=== PATIENT | male | born 1955 | race Caucasian/White ===

== ENCOUNTER → 2020-06-28 03:24 | Outpatient (CLI) | payer MEDICARE, SELFPAY ==
[2020-06-28 18:11] LABS: SARS-CoV-2 RNA PCR Negative
== END ==
PROVIDERS: PCP Internal Medicine; Visit Provider Internal Medicine Gastroenterology
DX: Z01.812 Encounter for preprocedural laboratory examination (principal); Z20.822 Contact with and (suspected) exposure to COVID-19
CPT/HCPCS: C9803; U0003; U0005

== ENCOUNTER 2020-07-01 01:40 | Day surgery (SDC) | payer MEDICARE, OTHER, SELFPAY ==
[2020-06-25 08:29] VITALS: BMI 34.7
[2020-07-01 07:10] VITALS: BP 146/87; PULSE 86; RESP 20; TEMP 36.3; O2SAT 100; BMI 33.7
[2020-07-01] MEDS: LACTATED RINGERS 1,000 ML 150 ML IV CONT (07:26)
--- NOTE | 2020-07-01 07:41 | P.PNAN_ITS ---
Anes - Initial Pre Proc Eval Procedure: Operation Date: 07/01/20 08:30 Proposed Procedures p Screening Colonoscopy - Kike Izquierdo MD Date/Time: 07/01/20 07:41 Surgeon: Kike Izquierdo MD Pre Op Diagnosis: Neoplasm Screening Patient Data Age: 64 Gender: M Height: 1.78 m Weight: 106.6 kg Last Vital Signs Temp 36.3 C L 07/01/20 07:10 Pulse 86 07/01/20 07:10 Resp 20 07/01/20 07:10 BP 146/87 H 07/01/20 07:10 Pulse Ox 100 07/01/20 07:10 Allergies Allergy/AdvReac Type Severity Reaction Status Date / Time Penicillins Allergy Mild Rash Verified 07/01/20 07:07 Home Medications Medication Instructions Recorded Confirmed Type sodium,potassium,mag sulfates See Rx Instructions .ROUTE 06/24/20 Rx [Suprep Bowel Prep Kit] .COMPLEX #1 ml atorvastatin 40 mg PO DAILY 06/25/20 06/25/20 History quinapril-hydrochlorothiazide 1 tablet PO BID 06/25/20 06/25/20 History verapamil 180 mg PO BID 06/25/20 06/25/20 History Patient hx anesthesia problems: none Family hx anesthesia problems: none [facility] Past Medical History Medical History (Updated 07/01/20 @ 07:42 by Vijay Romero MD) HTN (hypertension) Hyperlipidemia Obesity Social History Social History Smoking status: Never smoker Alcohol intake: current Drinks per week: 5 Substance use: never Substance use type: does not use Living arrangements: with family Spiritual care concerns: No Anes - Eval Final PreProcedure Day of Procedure 07/01/20 07:41 Patient weight: obese Heart: regular rate and rhythm Lungs: clear to auscultation and normal air movement Airway: Mallampati scale class II Neurological: alert and oriented Last oral intake: >/= 8 hours ASA classification: III Emergent: no Anesthetic plan: proceed Anesthesia type and monitoring: general GIVS Informed Consent: The patient's anesthetic plan and its attendant risks and benefits were discussed with the patient/family/POA. Questions were solicited and answers provided to the satisfaction of the patient/family/POA.
--- NOTE | 2020-07-01 07:53 | WPDGICN ---
Assessment and Plan Assessment and plan (1) History of colon polyps: Code(s): Z86.010 - Personal history of colonic polyps Status: Acute Assessment and Plan: Patient has a history of adenomatous colon polyp removed in 2017. Plan is for surveillance colonoscopy at this time and every 3-5 years in the future. (2) Obesity: Code(s): E66.9 - Obesity, unspecified Status: Acute Assessment and Plan: Patient is overweight and is encouraged to lose weight calorie counting dietary restriction is encouraged. GI Consult Note Consult date/time: 07/01/20 07:53 HPI: Gus Ham is a 64 year old male Seen in evaluation at the request of Dr. Gregg Mir. patient presents for screening colonoscopy. Patient states his last exam was 5 years ago. He states he may have had a colon polyp at that time. Patient denies abdominal pain. He reports that his current weight appetite bowel movements are normal. He denies abdominal pain. Family history is noncontributory. Review of records reveals a history of adenomatous colon polyp in 2017. Review of Systems Review of Systems: All systems reviewed & are unremarkable except as noted in HPI and below PMFSH Past Medical History Medical History (Updated 07/01/20 @ 07:55 by Kike Izquierdo MD) HTN (hypertension) Hyperlipidemia Obesity Social History Social History Smoking status: Never smoker Alcohol intake: current Drinks per week: 5 Substance use: never Substance use type: does not use Living arrangements: with family Spiritual care concerns: No Meds Home Medications and Allergies Home Medications Medication Instructions Recorded Confirmed Type sodium,potassium,mag sulfates See Rx Instructions .ROUTE 06/24/20 Rx [Suprep Bowel Prep Kit] .COMPLEX #1 ml atorvastatin 40 mg PO DAILY 06/25/20 06/25/20 History quinapril-hydrochlorothiazide 1 tablet PO BID 06/25/20 06/25/20 History verapamil 180 mg PO BID 06/25/20 06/25/20 History Allergies Allergy/AdvReac Type Severity Reaction Status Date / Time Penicillins Allergy Mild Rash Verified 07/01/20 07:07 Vital Signs Vital Signs - 24 hr 07/01/20 07:10 Temperature 97.4 F L Pulse Rate 86 Respiratory Rate 20 Blood Pressure 146/87 H Pulse Oximetry 100 Exam Narrative: Exam Narrative: Physical exam reveals patient to be alert. Vital signs stable. HEENT exam unremarkable. Lungs are clear to auscultation and percussion. Heart is without murmur or extra sounds. Abdominal exam bowel sounds present soft nontender with no hepatosplenomegaly. Digital external rectal exam normal.
[2020-07-01 08:20] VITALS: BP 129/91; PULSE 70; RESP 17; O2SAT 98
[2020-07-01 08:30] VITALS: BP 133/89; PULSE 68; RESP 19; O2SAT 100
[2020-07-01 08:40] VITALS: BP 145/93; PULSE 57; RESP 16; O2SAT 100
== END 2020-07-01 08:59 | disposition home or self-care (01) ==
PROVIDERS: PCP Internal Medicine; Visit Provider Internal Medicine Gastroenterology
PROC: 0DJD8ZZ Inspection of Lower Intestinal Tract, Via Natural or Artificial Opening Endoscopic (ICD-10-PCS; CPT 45378; principal; 2020-07-01 08:30)
DX: Z12.11 Encounter for screening for malignant neoplasm of colon (principal); K64.8 Other hemorrhoids; K57.30 Diverticulosis of large intestine without perforation or abscess without bleeding; Z86.010 Personal history of colon polyps; I10 Essential (primary) hypertension; E78.5 Hyperlipidemia, unspecified; E66.9 Obesity, unspecified; Z68.33 Body mass index [BMI] 33.0-33.9, adult
CPT/HCPCS: G0105; J2001; J2704; J7120